=== PATIENT | male | born 1985 | race Caucasian/White ===

== ENCOUNTER 2017-07-15 12:50 | Outpatient (RCR) | payer SELFPAY ==
--- NOTE | 2017-07-15 12:50 | DT_ITS ---
This patient was seen during an EMR downtime July 12, 2017 - July 19, 2017. This patient may have a combination of paper and electronic documentation or all paper documentation. All documentation is viewable within the e-chart portion of [employer] for each patient visit.
--- NOTE | 2017-07-19 17:44 | HP.OTEVAL ---
Patient's Visit Information BERTIN CRANE is a 32 year old M, referred to Occupational Therapy by [facility], with a diagnosis of left wrist and elbow pain. Date of Evaluation: 07/15/17 Occupational Therapist: MEKA Gupta/Tova, CHT - Subjective Subjective: This 32 year old male was seen for intital OT eval on July 15, 2017. pt reports he injured his oleft wrist over a year ago- states pain has come and gone depending on what he was doing- states pain has moved to lat. side of his elbow- pt had cortisone shot that lasted 5 weeks- but push ups hurt, and while working his wrist starts to hurt- pt states he has tried tape and wrist braces but did not help with the pain- pt would like to return to PLOF - Pain left wrist 6 Pain Intensity Range: 0, 6 - Objective Objective/Observation: pt demo pain with resistance of left wrist in flex/ext and radial/ulnar dev. - ROM Wrist: right 70/65 left 75/70 right ROM Comments: Right RD/UD 15/30. Left RD/UD 15/40 - Strength Assistant Librarian: right 135# left 95# Lateral Pinch: right 20# left 18# Tripod Pinch: right 14# left 12# - Sensation Sensation Comments: Denies - Goals Goal:: Pt will demo a increase in left retail parts professional strength to 115# or greater to return to PLOF with IADLs by d/c Goal:: Pt will demo full end range of motion of left wrist with no pain to perfrom IADLS and ADLS by d/c Goal:: pt will report no pain greater than 2/10 with use of left hand with IADLS by d/c - Rehabilitation General Assessment: Pt demo with pain at left radial head elbow region and left wrist ulnar region- palpation painful at scaphoid/lunate region Rehabilitation Potential: Good - Anticipated Interventions Anticipated Interventions: A/AAROM/PROM, Strengthening, Modalities, Orthoses, Ergonomic Education - Visit Plan Frequency: Every Other Week Duration: 6 Weeks General Plan: due to pts insurance pt was to pay out of pocket for therapy- Therapist rec'd 2-3 xweek for 4-6 weeks- pt was given HEP and precautions to work under while working on left wrist stabalization ex. (dart throwers motion) with use of ball wt etc. pt to return in one to two weeks to cont with PRE to stabalize wrist TEXT: Thank you for the opportunity to evaluate your patient. For Medicare and Medicare HMO plans, please review the plan of care and approve it. It will need to be FAXED BACK to us at [phone] for Medicare purposes. Please let me know if there are questions or concerns regarding this plan of care. Physician Signature: Date:
--- NOTE | 2017-10-04 15:55 | HP.OT.NRP ---
HP - Discharge Summary - Patient Information BERTIN CRANE was seen in my office for initial evaluation on 07/15/17. The following Plan of Care was established for this patient: Initial Frequency: Every Other Week Initial Duration: 6 Weeks - Anticipated Interventions Anticipated Interventions: A/AAROM/PROM, Strengthening, Modalities, Orthoses, Ergonomic Education This patient was last seen in our office 07/15/17. Pertinent comments regarding their Occupational therapy will appear below: Pt has not returned to OT since eval. due to laps in tx time pt d/c at this time from OT services. At this point I will be discontinuing this patient from occupational therapy. I would be happy to see this patient again in the future if found appropriate by the physician. Thank you! Joana Macedo, OTR/L, CHT
== END 2017-07-15 19:00 | disposition home or self-care (01) ==
LOC: OT 12:50
DX: M25.522 Pain in left elbow (principal); M25.531 Pain in right wrist
CPT/HCPCS: 97166

== ENCOUNTER → 2022-05-20 | Outpatient (CLI) | payer SELFPAY ==
[2022-05-20 18:49] LABS: HIV - WCH Non-Reactive (Nonreactive); Syphilis Antibodies Non-reactive
[2022-05-20 19:34] LABS: Chlamydia Trachomatis by PCR Negative (Negative); Neisserai gonorrhoeae by PCR Negative (Negative); Probe Check PASS; Sample Adequacy Control PASS; Specimen Processing Control PASS
== END | disposition home or self-care (01) ==
LOC: MTLAB 16:18
DX: D48.5 Neoplasm of uncertain behavior of skin (principal); R59.0 Localized enlarged lymph nodes
CPT/HCPCS: 36415; 86703; 86780; 87491; 87591